=== PATIENT | male | born 1960 | race American Indian/Alaskan Native ===

== ENCOUNTER 2022-06-04 08:47 | Outpatient (CLI) | payer OTHER ==
--- NOTE | 2022-06-04 11:06 | XRay Report ---
LUMBAR SPINE 3 VIEWS INDICATION: BACK PAIN COMPARISON: None. FINDINGS: There is no fracture, subluxation, or other acute radiographic abnormality of the lumbar spine. There is mild discogenic degenerative change at L2-3, L3-4 and L4-5. Signer Name: Alan Correa MD Signed: 06/04/2022 11:02 AM Workstation Name: [email or web address]
== END 2022-06-04 08:48 | disposition home or self-care (01) ==
LOC: XRAY 08:47
PROVIDERS: ATTEND Internal Medicine
DX: M47.816 Spondylosis without myelopathy or radiculopathy, lumbar region (principal)
CPT/HCPCS: 72100